=== PATIENT | female | born 1960 | race Caucasian/White ===

== ENCOUNTER → 2024-12-25 12:23 | Outpatient (REF) | payer OTHER, SELFPAY | LOC: RAD 12:23 | PROVIDERS: ATTENDING PHYSICIAN Student in an Organized Health Care Education/Training Program; FAMILY PHYSICIAN Internal Medicine | DX: I35.0 Nonrheumatic aortic (valve) stenosis (principal) | CPT/HCPCS: 74174; 75572; Q9967 ==

== ENCOUNTER 2025-01-03 06:02 | Day surgery (SDC) | payer OTHER, SELFPAY ==
[2025-01-03] VITALS (10 sets, daily range): BP systolic 115–134; BP diastolic 67–91; BMI 49.0
[2025-01-03 07:29] LABS: Glucose - Point of Care 130 mg/dl (70-99)
[2025-01-03] MEDS: NSS 194 IV (10:04)
--- NOTE | 2025-01-03 18:18 | ITS.CL.PN ---
Supervisor Partial Denture Department - Procedure Note
Procedure
Procedure Note:
CARDIAC CATHETERIZATION REPORT
Date of Procedure: 01/03/2025
Referring: Dr. Greg Chaparro MD
Indication: Symptomatic severe aortic valve stenosis
PROCEDURE(S)
1. right heart catheterization
2. left heart catheterization
3. bypass graft angiography
4. coronary angiography
ACCESS
1. 6F right femoral artery (closure: Perclose x1)
2. 6F right femoral vein (closure: manual hemostasis)
CATHETERS
1. 5F Creswell-Linda
2. 6F JR4
3. 6F JL3.5
4. 6F DAREK
5. 6F Pasco
MODERATE SEDATION: 40 minutes of moderate sedation was utilized. An independent medical secretary receptionist was present to assist with and help manage the patient's level of consciousness and physiologic status.
HEMODYNAMIC DATA
LV 203/14 (EDP 25) mmHg
AO 147/85 (mean 110) mmHg
RA 17 mmHg
RV 53/8 (EDP 23) mmHg
PA 49/24 (mean 35) mmHg
PCWP 25 mmHg
SaO2 97.0%
SvO2 68.8%
Hb 12.1 g/dL
CO/CI 5.98/2.69 L/min/m2
SVR 1245 dsc*-5
PVR 1.7 Wood units
Valve Study: Mean gradient 51.9 mmHg at heart rate of 69 bpm giving stroke-volume index of 39.0 mL/m2 and valve area of 0.81 cm2 (indexed valve area 0.36 cm2/m2)
CORONARY ANGIOGRAPHY
Dominance: Right
LM: Large vessel with diffuse mild disease.
LAD: Gives rise to 2 small diagonal branches and septal perforators but before being totally occluded in the midportion.
LCx: Diffusely diseased with a COMMUNICATIONS SPECIALIST of the large branching OM.
RCA: Large-caliber vessel giving rise to a large RPDA and numerous RPL branches. There is focal calcific disease in the mid RCA up to 50% in severity.
BYPASS GRAFT ANGIOGRAPHY:
IRIZARRY-LAD-OM: the IRIZARRY is taken as a pedicle and forms an anastomosis with the mid-LAD. A segment of radial artery is Y-grafted to the IRIZARRY and and supplies a patent anastomosis to a large OM branch
SVG-diag: Occluded proximally
RADIATION: dose 207 mGy; DAP 14.3 Gy*cm2; fluoroscopy time 7.2 min
CONCLUSIONS
1. Coronary angiography as described with moderate disease in the ungrafted RCA, patent IRIZARRY-radial Y-graft to LAD and large circumflex OM, and occluded vein to diagonal.
2. Severe bioprosthetic aortic valve stenosis
RECOMMENDATIONS
1. Proceed with workup for valve in valve TAVR
2. Secondary prevention of coronary artery disease
Copy to: Dr. Greg Chaparro MD (snowmobile mechanic); Dr. Case Soliz MD (PCP)
Signed: Arnoldo Christiansen MD, PhD
== END 2025-01-03 13:00 | disposition home or self-care (01) ==
LOC: CATH 06:02
PROVIDERS: ATTENDING PHYSICIAN Student in an Organized Health Care Education/Training Program; FAMILY PHYSICIAN Internal Medicine; OTHER PHYSICIAN Internal Medicine Cardiovascular Disease
DX: I35.0 Nonrheumatic aortic (valve) stenosis (principal); I25.10 Atherosclerotic heart disease of native coronary artery without angina pectoris; I25.810 Atherosclerosis of coronary artery bypass graft(s) without angina pectoris; Z87.891 Personal history of nicotine dependence; Z95.1 Presence of aortocoronary bypass graft; Z79.899 Other long term (current) drug therapy; Z79.82 Long term (current) use of aspirin; Z79.84 Long term (current) use of oral hypoglycemic drugs
CPT/HCPCS: 99152; 99153; 82962; 93460; 93461; C1760; C1769; C1894; Q9967

== ENCOUNTER 2025-02-11 05:01 | Inpatient (IN) | payer OTHER, SELFPAY ==
[2025-02-07 08:14] VITALS: BMI 50.1
--- NOTE | 2025-02-07 09:17 | CM ---
Chart reviewed. Met with the patient in PAT. Reviewed preoperative and postoperative instructions and restrictions, along with showering guidelines. Gave patient 2 soaps. Patient is agreeable to a visit by CT Transitional RN. Patient is
independent of ADLS, works from home, lives a 1 STH, attached to the home where her mother, father and brother live, 2 LYNSEY, 0 DME. Plan is for the patient to return home with CT Transitional RN. CM to follow
[2025-02-07 09:38] LABS: Hematocrit 38.7 % (37.0-47.0); Hemoglobin 12.6 g/dL (12.0-16.0); Mean Corp Hgb Conc. 32.6 g/dL (33.0-37.0); Mean Corpuscular Volume 79.1 fL (81.0-99.0); Nucleated Red Blood Cells % 0 %; Platelet Count 261 10^3/uL (130-400); Red Cell Dist. Width 15.0 % (11.5-14.5)
[2025-02-07 09:39] LABS: INR 0.89; PT 12.4 Sec (11.4-14.6)
[2025-02-07 09:40] LABS: Urine Character Clear (Clear)
[2025-02-07 09:54] LABS: ALT (SGPT) 24 U/L (0-35); AST (SGOT) 21 U/L (14-36); Albumin 4.5 g/dl (3.5-5.0); Alkaline Phosphatase 95 U/L (38-126); Blood Urea Nitrogen 21 mg/dl (7-17); Calcium 9.7 mg/dl (8.4-10.2); Carbon Dioxide 24 mmol/L (22-30); Chloride 102 mmol/L (98-107); Estimated Creatinine Clearance 92 ml/min; Glucose 135 mg/dl (70-99); Potassium 4.0 mmol/L (3.5-5.1); Sodium 139 mmol/L (135-145); Total Protein 7.0 g/dl (6.3-8.2); eGFR > 60.00
[2025-02-07 10:31] LABS: Glycohemoglobin (HgbA1c) 6.0 % (4.0-5.9)
[2025-02-07 10:38] LABS: Urine Squamous Cell >30 /LPF (Few); Urine Urothelial Cell 0-2 /LPF (FEW)
[2025-02-07 10:39] LABS: Urine Red Blood Cell 0-2 /HPF (0-2)
[2025-02-07 10:40] LABS: Urine White Cell 16-20 /HPF (0-5)
[2025-02-11] VITALS (17 sets, daily range): BP systolic 101–128; BP diastolic 42–75; BMI 50.9
[2025-02-11 05:26] LABS: Glucose - Point of Care 130 mg/dl (70-99)
[2025-02-11] MEDS: ANCEF 15 MG IV (06:00)
--- NOTE | 2025-02-11 06:22 | PTCARENOTE ---
Pt admitted to room 2241 for TAVR. pt AAO x 4. Pt denies any discomfort at this time. Ambulates independently. Pt oriented to the room. CHG and prep completed.
--- NOTE | 2025-02-11 06:34 | W.CVOR.SURPR ---
CVOR Surgeon Immed Pre Op
-
I have examined this patient prior to performance of the scheduled procedure.
The patient's condition is unchanged from the time of the dictated/written History and
Physical and the patient is able to undergo the scheduled procedure.
TF TAVR, s/p complicated cardiac surgery in past, limited rescue
[2025-02-11] MEDS: ANCEF 10 IV (07:48)
--- NOTE | 2025-02-11 08:39 | CM ---
pt in OR today.
[2025-02-11 08:53] LABS: ACT-LR - POC 274 Seconds (116-155)
[2025-02-11 09:07] LABS: ACT-LR - POC 314 Seconds (116-155)
--- NOTE | 2025-02-11 10:05 | ITS.CL.PN ---
[facility] - Procedure Note
Procedure
Procedure Note:
TRANSCATHETER AORTIC VALVE REPLACEMENT REPORT
Date of Procedure: 02/11/2025
Referring: Dr. Greg Chaparro MD
Indication: symptomatic severe bioprosthetic aortic valve stenosis with high surgical risk
Operators: Arnoldo Christiansen MD, PhD (interventional cardiology); Dr. Ute Dolan MD (CT surgery)
Anesthesia: conscious sedation provided by the anesthesia staff
PROCEDURE: transfemoral, transcatheter aortic valve replacement with a Medtronic Evolut FX+ 23 mm valve
ACCESS:
1. 6F left femoral vein (closure: manual hemostasis) - Ultrasound was utilized for vascular access. The vessel was visualized under ultrasound and noted to be patent. An image of the vessel was stored permanently in the patient's medical record.
Under direct ultrasound guidance, vascular access was obtained using a modified Seldinger technique and a 6 Anguillan sheath was placed.
2. 6F left common femoral artery (closure: Angioseal) - Ultrasound was utilized for vascular access. The vessel was visualized under ultrasound and noted to be patent. An image of the vessel was stored permanently in the patient's medical record.
Under direct ultrasound guidance, vascular access was obtained using a modified Seldinger technique and a 6 Anguillan sheath was placed.
3. 14 F right common femoral artery (closure: Perclose x2) - Ultrasound was utilized for vascular access. The vessel was visualized under ultrasound and noted to be patent. An image of the vessel was stored permanently in the patient's medical
record. Under direct ultrasound guidance, vascular access was obtained using a modified Seldinger technique and a 8 Anguillan sheath was placed.
HEMODYNAMIC DATA
LVEDP 25 mmHg
PROCEDURE NARRATIVE:
The patient was prepped and draped in standard sterile fashion. Conscious sedation was provided by the anesthesia staff. 6F left femoral vein and left common femoral artery access was obtained with ultrasound guidance using micropuncture technique
with verification of appropriate arteriotomy location via hand injection angiography. A temporary venous pacing wire was advanced via the left femoral vein to the right ventricle under fluoroscopic guidance with appropriate capture verified. A 5F
pigtail catheter was advanced via the left common femoral artery and seated in the non-coronary cusp. Angiography was performed to verify the cusp overlap angle.
8F right common femoral artery access was obtained with ultrasound guidance using micropuncture technique with verification of appropriate arteriotomy location via hand injection angiography. The arteriotomy was preclosed with two Perclose sutures
followed by replacement of the 8F sheath. Using an AL1 catheter, a Lunderquist wire was placed in the descending thoracic aorta. A 12F dilator was advanced over the Lunderquist wire followed by placement of a 14F Cook sheath. Heparin 10,000 units
was given. The AL1 catheter was re-advanced through the sheath to the level of the ascending aorta. The Lunderquist wire was exchanged for a soft tipped straight wire which was used to cross the aortic valve and deposit the AL1 in the LV apex. A
J-wire was used to exchange the AL1 for a pigtail catheter in the LV and LVEDP was measured. The Lunderquist wire was advanced through the pigtail catheter and seated in the LV apex. ACT was checked and confirmed to be >300 seconds.
The valve was inspected under fluoroscopy to confirm lack of infolding above the 4th node. The Cook sheath was removed, and the in-line sheath was advanced over the Lunderquist wire into the descending aorta. The valve was then advanced over the
aortic arch and into the left ventricle. In the cusp overlap view, the valve was slowly deployed to the point of flowering. The patient was paced to adequately lower pulse pressure as the valve was deployed through the rumble strips to 80%.
Injection demonstrated a non-coronary cusp implant depth of 3 mm. In an MALIAN projection with parallax removed from the valve system, depth was 3 mm at the [facility]. The decision was made to proceed with full deployment. The Lunderquist wire was partially
withdrawn to lift the nose cone of the valve delivery device. In the MALIAN view, the delivery handle was slowly rotated until both paddles were released from the superior aspect of the valve. Upon release the valve was noted to shift slightly aortic
with depth remeasured both in the MALIAN projection and the cusp overlap view of 2 mm. The delivery device was withdrawn to the descending aorta and re-assembled. The patient was resuscitated by anesthesia with recovery of adequate blood pressure.
Telemetry demonstrating sinus rhythm. Echocardiography was unable to measure a valve gradient due to body habitus precluding adequate windows. The inflow of the valve was noted to be mildly under-expanded at the annulus and given the patient's young
age and concern for long-term valve hemodynamic performance, the decision was made to perform BAV with a 20 mm true balloon.
The valve delivery system was removed and replaced with a Cook sheath. A pigtail catheter was used to deposit an Amplatz Extrastiff wire in the LV apex over which the True balloon was advanced and inflated under rapid pacing with full expansion
noted. With expansion, the valve was noted to foreshorten slightly with final depth of approximately 1 mm. The fully deflated balloon was carefully removed over the wire with stable valve position noted. Aortography demonstrated good valve
positioning, adequate coronary filling, and no aortic valve insufficiency.
The sheath was removed and hemostasis obtained with the two Perclose sutures. Protamine 40 mg was given. Aortoiliac angiography demonstrated no evidence of iliofemoral dissection/perforation and good runoff below the common femoral artery
bilaterally. The pacemaker and the pigtail catheter were removed. The left femoral artery sheath was removed using a 6F Angioseal. The left femoral venous sheath was removed with manual pressure.
CONCLUSIONS
1. successful placement of a Medtronic Evolut FX+ 23 mm transcatheter aortic valve via right transfemoral approach followed by post dilation with a 20 mm true balloon with no acute complications
2. acute on chronic systolic heart failure with elevated filling pressures (LVEDP = 25)
Copy to: Dr. Greg Chaparro MD (design drafter chief); Dr. Case Soliz MD (PCP)
Signed: Arnoldo Christiansen MD, PhD
--- NOTE | 2025-02-11 10:14 | W.PN.CT.SURG ---
CT Surgery Operative Note
-
OPERATIVE REPORT
Preoperative Diagnosis: Severe aortic valve stenosis, symptomatic
Postoperative Diagnosis: Same
Procedure(s) Performed:
1. Right trans femoral TAVR with a 23 mm Medtronic Evolut FX device
2. Post dilation using 20mm true balloon
Date of Procedure: 02/11/2025
Comorbidities:
1. Severe symptomatic aortic stenosis, prior AVR with 21 mm CE Magna Ease
2. Coronary artery disease status post CABG
3. Morbid obesity
4. History of sternectomy
5. DM 2
6. Hypertension
Cardiac Surgeon: Ute Dolan MD, MPH and Homer Ochoa MD, MS
Deputy Court: Mack Christiansen MD
Anesthesia: Conscious Sedation, Local
EBL: 150 cc
Products: none
Implant: Medtronic Evolut 23 mm SN: [id number]
Indication(s) for Procedures: 64-year-old female with severe aortic stenosis. Symptomatic. Preoperative echocardiographic assessment revealed a PG/MG of 60/40mmHg, JUAN 0.81, VMax 3.9m/s associated with worsening SOB on exertion. Given her body
habitus, previously complicated surgery requiring sternectomy and in depth conversation with shared decision making TAVR was best option in this situation at this time. CT-TAVR protocol revealed acceptable anatomy for a self-expanding TAVR valve.
Start time: 0801 hrs
Deployment time: 0848 hrs
End time: 0934 hrs
Radiation Dose (mGy): 1109
DAP (cm2.Gy): 108
Fluoroscopy time (minutes): 22.5
Contrast volume (ml): 35
TAVR gradient (mmHg): Unable to obtain given body habitus and difficult windows
Heparin Dose: 13,000 units
Protamine Dose: 40 mg
Final Valve Positionin mm
Findings: Preoperative LVEF was 55-60%, she tolerated the procedure well and was on small dose of Levo post deployment. The intraprocedure TTE was unfortunately very limited given body habitus and significant respiratory interference, the function
from what could be seen was at baseline without RWMA, could not obtain valve gradient. The valve did not appear fully expanded on fluoroscopy and given her size and the small size of her surgical valve we opted to balloon dilate to best optimize her
valve deployment. The aortic valve was well seated with no appreciable PVL on root shot and there was good filling of RCA. The patient did not require pacing postoperative and was in sinus rhythm. There was successful placement of 23 Evolut FX TAVR
valve with post balloon dilation without acute complications.
Access:
1. Device - R MATERIAL CLERK, perclose x 2
2. Pigtail - L MATERIAL CLERK + 6Fr angioseal
3. Transvenous Pacer - L femoral vein
Description of Procedure: The patient was taken to the supervisor laboratory animal facility. Their identity and procedure to be performed were verified and they were positioned supine on the supervisor laboratory animal facility table. Induction via conscious sedation/LMA with local analgesia. The patient
was then prepped and draped from chin to thigh in a sterile fashion. A preoperative time-out was performed with all members of the team present. Using fluoroscopy, bilateral femoral heads and their margins were identified. Arterial and venous access
were done with a micropuncture needle with Seldinger technique. Test pacing revealed capture with excellent threshold. Angiography confirmed proper puncture site and femoral artery integrity. Two Per-Close devices were used on the TAVR side. An AL1
catheter was used to deliver a extrastiff wire and insertion of the working sheath. An AL1 catheter with a straight stiff wire was used to access the LV. The valve was prepped and mounted on to the device carrier. An ACT of >250 was achieved. We
verified x 3 under fluoroscopy that the valve was mounted correctly with paddles in appropriate position. We than set our parameters to achieve a co-planar view with the pigtail positioned in the NCC. We advanced the device with it's in-line sheath
into the descending thoracic aorta and over the arch into the root and positioned across the aortic valve. Contrast fluoroscopy was used to visualize the prosthesis across the valve. We performed a quick pre-deployment time out. We verified
positioning based on the pigtail and gentle contrast puffs. The valve was slowly deployed to just before annular contact. We paused here and verified positioning in our cusp overlap view. We then rotated ENE and removed any parallax from the valve.
Contrast was used to verify the LCC was appropriate in height. It was and so we slowly continued to deploy the valve until the crowns and paddles were free from the device. At this point the valve was functioning and pacing was stopped. We slowly
continued to deploy the valve until the crowns and paddles were free from the device. The deployment device was withdrawn into the descending thoracic aorta while maintaining wire access across the valve. A transthoracic echocardiogram was performed
. The pigtail was re-positioned at the level of the crown of the valve and angiography revealed good placement though there was slight shift aortic leaving the depth at 2mm. AMIE was unable to obtain windows to assess gradient given her body habitus
and significant respiratory variation. On fluoro the inflow of the valve appeared to be slightly under-expanded at the level of the annulus. Given the patient's age and need for optimal hemodynamic performance, we decided to perform BAV with 20mm
true balloon. We exchanged out the valve delivery system for a sheath and using pigtail deposited stiff wire into the LV apex. The balloon was expanded under rapid pacing after confirming positioning in across the valve. After expansion the final
depth of the valve was 1mm due to foreshortening with balloon expansion. The balloon was removed without complication and root angiography confirmed good expansion without AI and good coronary filling of the RCA. The sheath was removed from the
groin as we cinched down the perclose devices while maintaining wire access. There was acceptable hemostasis. The pigtail was repositioned into the descending/abdominal and runoff aortogram was performed. There was no significant stenosis or
dissection of the bilateral iliofemoral systems with excellent runoff to the SFAs. All wires were removed and perclose snugged and cut. There was acceptable hemostasis of bilateral groins.
All instrument, sponge, and needle counts were confirmed to be correct x 2 at the end of the operation. The patient was transferred to the cardiac intensive care unit in stable condition.
I, Dr. Ute Dolan, was present, scrubbed for, and performed all critical elements of this procedure.
Ute Dolan MD, MPH
Cardiothoracic Surgeon
[facility]
This operative dictation was created using the inSparq dictation system. Please excuse any grammatical, typographical, or 'sound alike' errors
[2025-02-11] MEDS: LEVOPHED 250 IV (10:28)
[2025-02-11 10:30] LABS: Glucose - Point of Care 147 mg/dl (70-99)
[2025-02-11] MEDS: LASIX 20 MG IV (12:03)
[2025-02-11] MEDS: FLUSH (NSS) 1 FLUSH IV ×2 (12:04→16:16)
--- NOTE | 2025-02-11 12:15 | PTCARENOTE ---
received patient from crime lab analyst s/p TAVR, patient is lethargic, but easily aroused to voice, answers questions appropriately and follow command, please see neuro Check list. bilat. groins intact, distal pluses normal. left groin is reddened and
moist. monitor shows NSR, IV Levophed @ 1mcg/min or 3.8cc, BP 107/56. patient has not voided yet, pure wick in place. Lasix IV given as ordered. patient remains on 2 LNC, o2 sat 93%. knee hi sequentials placed but patient doesn't like them on , so
removed. instructed patient on importance of sequentials. sternum is soft, chronic, 2018 had Cabg/AVR , and was infected at that time. encouraged patient to rest and will continue to monitor. family at bedside.
--- NOTE | 2025-02-11 12:26 | PTCARENOTE ---
BP 108/65, D/C'd IV Levophed.
[2025-02-11 14:49] LABS: Glucose - Point of Care 137 mg/dl (70-99)
[2025-02-11] MEDS: ANCEF 5 IV (16:15)
--- NOTE | 2025-02-11 16:29 | PTCARENOTE ---
patient up OOB , ambulated to BR, voided, then ambulated to recliner, lex. well. bilat. groins are tender to touch, dsg. D/I, distal pulses palpable.
[2025-02-11] MEDS: LIPITOR 40 MG PO (17:24)
[2025-02-11] MEDS: COZAAR 50 MG PO (17:24)
[2025-02-11] MEDS: LOPRESSOR 25 MG PO (19:37)
[2025-02-11] MEDS: LUVOX 100 MG PO (19:37)
[2025-02-11 22:14] LABS: Glucose - Point of Care 185 mg/dl (70-99)
--- NOTE | 2025-02-11 23:22 | PTCARENOTE ---
Pt. OOB to chair all evening, ambulating without difficulty. VSS; NSR on the monitor. B/L groin site dressing CDI without drainage or hematoma, circulation WNL. No complaints of chest pain or discomfort, neurochecks WNL. Pt. resting quietly.
--- NOTE | 2025-02-12 02:09 | W.PN.CT ---
Today's Communication / Plan
-
Plan:
-No major issues overnight. Hemodynamically and neurologically intact
-No rhythm issues, currently NSR @ 74 bpm
-Groin C/D/I without significant hematoma, palpable distal pulses (+1)
-Repeat echo today
-Cont. current meds (ASA, Lipitor, Luvox, Lopressor, Norvasc, Losartan)
-OOB into chair/Ambulate
-Likely home today
Assessment / Plan
-
Assessment:
-S/P Right trans femoral TAVR with a 23 mm Medtronic Evolut FX device/ Post dilation using 20mm true balloon, bu Dr. Dolan/Kuldip, 02/11/25, pod#1
-Severe symptomatic aortic stenosis, prior AVR with 21 mm CE Magna Ease
-Coronary artery disease status post CABG
-Morbid obesity (class 4)
-History of sternectomy
-DM 2
-Hypertension
-S/p AVR/CABG x 2017
-Hysterectomy, 2006
Discussed patient care with: Cardiology, Nursing, Respiratory Therapy, Pharmacy and Care Team
Subjective
-
Date of Service: February 12, 2025
Pt offers no complaints, feels well
Objective Data
-
PT 12.4 Sec (11.4-14.6) 02/07/25 08:12
INR 0.89 02/07/25 08:12
Vital Signs
Vital Signs
Temp Pulse Resp BP Pulse Ox
97.6 F 73 18 104/62 91
02/11/25 22:11 02/11/25 22:11 02/11/25 22:11 02/11/25 22:11 02/11/25 22:11
CT Intake/Output/Weight
02/11/25 02/11/25 02/12/25
06:59 18:59 06:59
Intake Total 1480 / 1480
Output Total 1000 / 1000
Balance 480 / 480
SaO2: 91 (RA)
Physical Exam
-
General: Awake, Oriented and AOx3
Cardiovascular: Regular rate & rhythm, No Murmurs, No Rub and No Gallop
Respiratory: Clear
Incision: Clean, Dry, Intact and Dressing Intact
Extremities: Other (+trace)
Data Reviewed
-
Lab Results: Results Reviewed
Medications: Active Meds Reviewed
Chest X-Ray: Report Reviewed and Image Reviewed
ECG: Report Reviewed and Image Reviewed
[2025-02-12 03:12] VITALS: BP 120/65
[2025-02-12 05:06] LABS: Hematocrit 33.6 % (37.0-47.0); Hemoglobin 10.5 g/dL (12.0-16.0); Mean Corp Hgb Conc. 31.3 g/dL (33.0-37.0); Mean Corpuscular Volume 82.4 fL (81.0-99.0); Platelet Count 176 10^3/uL (130-400); Red Cell Dist. Width 14.9 % (11.5-14.5)
[2025-02-12 05:37] LABS: Blood Urea Nitrogen 24 mg/dl (7-17); Calcium 8.5 mg/dl (8.4-10.2); Carbon Dioxide 30 mmol/L (22-30); Chloride 100 mmol/L (98-107); Estimated Creatinine Clearance 104 ml/min; Glucose 149 mg/dl (70-99); Magnesium 1.6 mg/dl (1.6-2.3); Potassium 3.8 mmol/L (3.5-5.1); Sodium 135 mmol/L (135-145); eGFR > 60.00
[2025-02-12 07:00] VITALS: BP 113/70
--- NOTE | 2025-02-12 07:50 | W.PN.ANS.POP ---
Anesthesia Post Operative
- Anesthesia Post Op Note
Vital Signs Stable-See Nursing Note: Yes
Airway Patent: Yes
Adequate Pain Control: Yes
Change in Mental Status: No
Current Postoperative Nausea & Vomiting: No
Anesthesia Complications: No
General Anesthetic Recall: No
Unplanned Admission: No
Post Op Hydration Adequate: Yes
[2025-02-12] MEDS: FLUSH (NSS) 2 FLUSH IV (08:46)
[2025-02-12] MEDS: LOPRESSOR 25 MG PO (08:46)
[2025-02-12] MEDS: NORVASC 10 MG PO (08:46)
[2025-02-12] MEDS: VITAMIN D3 (cholecalciferol) 25 MCG PO (08:46)
[2025-02-12] MEDS: ASPIR LOW (ENTERIC COATED) 81 MG PO (08:46)
[2025-02-12] MEDS: LUVOX 100 MG PO (08:48)
--- NOTE | 2025-02-12 08:51 | W.DCSUMMARY ---
Discharge Summary
Discharge Data
Date of Admission: 02/11/25
Date of Discharge: 02/12/25
Total time spent discharging patient (in min): 45
-
Pending Results: No
Hospital Course
Primary care physician:
Dr. Case Soliz MD (PCP)
Outpatient validation specialist:
Dr. Greg Chaparro MD (validation specialist)
Inpatient consultants:
CBC
Procedures:
1. Right trans femoral TAVR with a 23 mm Medtronic Evolut FX device
2. Post dilation using 20mm true balloon
Primary Diagnosis:
1. Severe aortic stenosis
Secondary Diagnoses:
1. CAD s/p CABG
2. Severe s/p AVR in 2018
3. Morbid obesity
4. History of sternectomy
5. Type 2 diabetes
6. Hypertension
HPI: 64-year-old with previous AVR and sternectomy from 2018 seen outpatient for worsening presented electively on 02/11 for TAVR.
Hospital course:
Patient was electively admitted on 02/11 for a transcatheter aortic valve replacement with Dr. Dolan. There were no intra-op events and patient went to chemical laboratory scientist recovery. B/l groins remain stable. She was sent to IVU for the remainder of their
recovery. She was weaned off levophed and given 20mg of IV lasix. On 02/12, POD #1, B/L groins remained stable. Repeat TTE showed a LVEF of 70-75% peak/mean gradient of 24/12mmHG and moderate TR. She was deemed stable for discharge.
Home medication changes:
See below
Discharge Plan
-
Patient Disposition: Home (Routine Discharge)
Discharge Diagnosis/Procedures: Aortic Stenosis/Right TF-TAVR (#23 mm Medtronic Evolut Fx) with Dr. Homer Ochoa & Dr. Arnoldo Christiansen on 02/11/25
Condition: Good
Diet: Low Cholesterol and 2 Gram Sodium
Activity: As tolerated
Driving Restrictions: No driving for 1 week
Bathing Restrictions: OK to Shower
Blood Work: bmp in one week
Others Tests: 30 Day Follow-Up Echocardiogram: 03/12/24 @ 9:[address] Chaparro's Office in [place]
Other Services: Cardiac Rehab
Wound Care: Please do not apply lotions, creams or powders to groin areas.
Please monitor for increased swelling, pain, redness or drainage. Notify your doctor if any occur.
Do not soak in water (bathtub, hottub, pool, ect.) for 1-week until procedural sites are healed.
Specialty Instructions: Weigh Daily- Call MD for wt gain/loss 3 lbs overnight/5 lbs in 1 week
Referrals:
CT Transitional Care Nurse [Outside]
Greg Chaparro MD [Active, Cardiology] - 04/03/25 12:20 pm
Case Soliz MD [Family Provider, Internal Medicine]
Prescriptions:
New
furosemide [Lasix] 40 mg tablet
40 mg PO DAILY Qty: 14 0RF
potassium chloride [Klor-Con M20] 20 mEq tablet,ER particles/crystals
20 meq PO DAILY Qty: 7 0RF
Continued
losartan 50 mg Tablet
50 mg PO QPM
atorvastatin 40 mg Tablet
40 mg PO QPM
clonazepam 0.5 mg Tablet
0.5 mg PO DAILY PRN (Reason: anxiety)
amlodipine 10 mg Tablet
10 mg PO DAILY
fluvoxamine 100 mg Tablet
100 mg PO BID
metformin 1,000 mg Tablet
1,000 mg PO BID
aspirin 81 mg Tablet
81 mg PO QPM
loratadine 10 mg Tablet
10 mg PO QPM PRN (Reason: allergies)
metoprolol tartrate 25 mg Tablet
25 mg PO BID
cholecalciferol (vitamin D3) [Vitamin D3] 25 mcg (1,000 unit) Tablet
25 mcg PO DAILY
amoxicillin 500 mg Tablet
2,000 mg PO PRN PRN (Reason: dental work)
Discharge Orders:
Discharge Patient (As Directed); Ordered 02/12/25
Ordered By: Melissa Faith
Care Plan Goals
Care Plan Goals:
Problem: Readiness for enhanced knowledge related to diagnosis and treatment plan
Goal: Understand your diagnosis and treatment plan needs, including medications if applicable.
Instructions: Know your diagnosis, underlying causes and treatment plan options, including medications if applicable. Consult with your health care team to learn about your diagnosis and treatment plan, including medications if applicable.
Discharge Date and Time
Print Language: YAKUT
--- NOTE | 2025-02-12 09:10 | W.PN.CD ---
Today's Communication / Plan
-
- Appears to be clinically stable status-post TAVR yesterday.
- Echocardiogram today; likely discharge to home thereafter.
- Patient would likely benefit from a diuretic; consider changing from amlodipine to a diuretic--defer to primary Zigzagger.
- Outpatient follow-up with primary Zigzagger.
Impression / Plan
-
64-year-old female (known to Dr. Napoles, her primary Zigzagger) with coronary artery disease/AAS status-post CABG/AVR (2018), hypertension, hyperlipidemia, prediabetes, and morbid obesity admitted for an elective TAVR. Now status-post right
trans femoral TAVR with a 23 mm Medtronic Evolut FX device (Dr. Dolan/Dr. Christiansen, 02/11/25).
Status-post TAVR:
- Appears to be clinically stable status-post TAVR yesterday.
- Echocardiogram today; likely discharge to home thereafter.
Coronary artery disease status post CABG
- Stable; denies any anginal symptoms
- Continue aspirin, atorvastatin, and metoprolol tartrate.
Hypertension:
- Blood pressure controlled.
- Continue current doses of amlodipine, losartan, and metoprolol tartrate.
- Patient would likely benefit from a diuretic; consider changing from amlodipine to a diuretic--defer to primary Zigzagger.
Hyperlipidemia:
- Continue atorvastatin.
-Morbid obesity:
-Weight loss and regular exercise recommended.
Physical Exam
Vital Signs/Labs
Vital Signs
Temp Pulse Resp BP Pulse Ox
98.1 F 72 20 113/70 91
02/12/25 07:00 02/12/25 07:00 02/12/25 07:00 02/12/25 07:00 02/12/25 07:00
02/11/25 02/12/25 02/13/25
06:59 06:59 06:59
Actual Weight 126 kg
02/12/25 04:49
02/12/25 04:49
PT 12.4 Sec (11.4-14.6) 02/07/25 08:12
INR 0.89 02/07/25 08:12
Magnesium 1.6 mg/dl (1.6-2.3) 02/12/25 04:49
02/07/25
08:12
Upl-W-Zkgnwuoffna Pept 678
Physical Exam
Constitutional: No acute distress and Comfortable
EENT: Anicteric
Cardiovascular: Rhythm & rate is regular, Pedal edema present (Trace-1+), Systolic murmur present (3/6) and S1S2 is normal
Respiratory: Respiratory effort normal and Rhonchi Present
GI: Soft
Neuro/Psych: AO x 3
Other: Skin (Warm, dry)
Data Reviewed
-
Date of Service: February 12, 2025
EKG: Tracing Personally Visualized and interpreted (Telemetry: Sinus rhythm)
Echo: Other (Results pending)
Medical Tests (PFT, Pathology etc): Discussed with Nurse and Discussed with Patient
Labs: Labs Reviewed by me
--- NOTE | 2025-02-12 09:12 | PTCARENOTE ---
Patient resting in bed this morning, bilateral groin dressings are dry and intact, neuro status is stable. Echo done at the bedside and she is hopeful to be discharged, offers no complaints.
--- NOTE | 2025-02-12 10:05 | CM ---
Chart reviewed. Patient is independent of ADLS, works from home, lives a [address], attached to the home where her mother, father and brother live, 2 [address], 0 DME. Plan is for the patient to return home with CT Transitional RN. CM to follow
[2025-02-12 10:44] VITALS: BP 123/69
[2025-02-12 10:58] VITALS: BP 113/65
[2025-02-12 11:04] VITALS: BP 138/66
[2025-02-12 11:11] VITALS: BP 113/64; BP 138/66; PULSE 60; O2SAT 94
--- NOTE | 2025-02-12 11:51 | PTCARENOTE ---
Patient cleared for discharge. Reviewed discharge instructions with follow up appointments, lab work and new medications ordered and she states her understanding. Patient discharged home with her mother.
== END 2025-02-12 11:40 | disposition home or self-care (01) | DRG 266 ==
LOC: IVU 05:01
PROVIDERS: ADMITTING PHYSICIAN Thoracic Surgery (Cardiothoracic Vascular Surgery); ATTENDING PHYSICIAN Student in an Organized Health Care Education/Training Program; CONSULT PHYSICIAN Student in an Organized Health Care Education/Training Program; FAMILY PHYSICIAN Internal Medicine
PROC: 02RF38Z Replacement of Aortic Valve with Zooplastic Tissue, Percutaneous Approach (ICD-10-PCS; 2025-02-11)
DX: T82.857A Stenosis of other cardiac prosthetic devices, implants and grafts, initial encounter (principal); I50.23 Acute on chronic systolic (congestive) heart failure; Z68.43 Body mass index [BMI] 50.0-59.9, adult; I25.10 Atherosclerotic heart disease of native coronary artery without angina pectoris; E66.01 Morbid (severe) obesity due to excess calories; E11.9 Type 2 diabetes mellitus without complications; I11.0 Hypertensive heart disease with heart failure; Y71.2 Prosthetic and other implants, materials and accessory cardiovascular devices associated with adverse incidents; E78.5 Hyperlipidemia, unspecified; Z95.1 Presence of aortocoronary bypass graft
CPT/HCPCS: 33361; 36415; 71045; 71046; 80048; 80053; 81003; 81015; 82248; 82962; 83036; 83735; 83880; 85025; 85027; 85347; 85610; 86850; 86900; 86901; 87070; 87086; 93005; 93308; 93321; 93325; C1760; C1769; C1894; Q9967